=== PATIENT | male | born 1990 | race Two or more races ===

== ENCOUNTER 2019-05-05 00:43 | Emergency (ER) | payer OTHER ==
[~2019-05-05] VITALS: Ht 170.2 cm; Wt 72.6 kg
[2019-05-05] MEDS ORDERED: TYLENOL EXTRA500 MG PO (05:34)
== END 2019-05-05 05:40 | disposition home or self-care (01) ==
LOC: ER 00:43
DX: B34.9 Viral infection, unspecified (principal); R50.9 Fever, unspecified